=== PATIENT | male | born 1980 | race Caucasian/White ===

== ENCOUNTER 2020-03-16 16:47 | Emergency (ER) | payer SELFPAY ==
[2020-03-16] MEDS ORDERED: Ondansetron PF 4 MG/2 ML Vial ONE (18:04)
[2020-03-16] MEDS ORDERED: Ketorolac Tromethamine 30 MG/ML VIAL ONE (18:04)
[2020-03-16] MEDS ORDERED: diphenhydrAMINE 50 MG/ML VIAL ONE (18:05)
[2020-03-16 18:10] LABS: Hemoglobin 16.8 g/dL (14.0-18.0); Mean Corpuscular HGB CONC 34.6 g/dL (32.0-36.0); Mean Corpuscular Hemoglobin 32.2 pg (27.0-31.0); Platelet Count 331 thou/uL (130-400); RBC Distribution Width 12.3 % (11.5-14.5); Red Blood Cell (RBC) Count 5.24 mill/uL (4.70-6.10); White Blood Cell (WBC) Count 21.8 thou/uL (4.8-10.8)
[2020-03-16] MEDS ORDERED: Haloperidol Lactate 5 MG/ML VIAL SLOW IVP SCH (18:15)
[2020-03-16 18:28] LABS: MDiff Complete? YES
[2020-03-16] MEDS ORDERED: Haloperidol Lactate 5 MG/ML VIAL ONE (18:28)
[2020-03-16 18:29] LABS: ALT (SGPT) 33 U/L (8-55); AST (SGOT) 21 U/L (5-34); Alkaline Phosphatase 95 U/L (40-110); Anion Gap 26 mmol/L (10-20); BUN (Urea Nitrogen) 18 mg/dL (8.9-20.6); Band 7 % (5-11); Bilirubin, Total 0.9 mg/dL (0.2-1.2); Calc. Creatinine Clearance 0 mL/min (70-130); Calcium 10.4 mg/dL (7.8-10.44); Carbon Dioxide 14 mmol/L (22-29); Chloride 101 mmol/L (98-107); Globulin 3.3 g/dL (2.4-3.5); Glucose 169 mg/dL (70-105); Lipase 5 U/L (8-78); Lymphocytes 5 % (21-51); Monocytes 3 % (0-10); Neutrophil 84 % (42-75); Platelet Morphology Comment Appears Adequate; Potassium 3.8 mmol/L (3.5-5.1); Protein, Total 8.3 g/dL (6.0-8.3); RBC Morphology Normal; Reactive Lymphocytes 1 % (0-10); Sodium 137 mmol/L (136-145)
== END 2020-03-16 19:25 | disposition home or self-care (01) ==
LOC: ERS 16:47
DX: R11.2 Nausea with vomiting, unspecified (principal); R10.84 Generalized abdominal pain; F17.210 Nicotine dependence, cigarettes, uncomplicated
CPT/HCPCS: 36415; 80053; 83690; 85025; 96374; 96375; J1200; J1630; J1885; J2405

== ENCOUNTER 2020-03-24 09:18 | Emergency (ER) | payer SELFPAY ==
[2020-03-24] MEDS ORDERED: Ondansetron PF 4 MG/2 ML Vial ONE (09:52)
[2020-03-24 09:58] LABS: #Basophils 0.1 thou/uL (0.0-0.2); #Eosinphils 0.5 thou/uL (0.0-0.7); #Lymphocytes 4.1 thou/uL (1.20-3.40); #Monocytes 1.5 thou/uL (0.11-0.59); #Neutrophils 8.9 thou/uL (1.40-6.50); %Basophils 0.5 % (0.0-1.0); %Eosinophils 3.6 % (0.0-10.0); %Lymphocytes 27.3 % (21.0-51.0); %Monocytes 9.8 % (0.0-10.0); %Neutrophils 58.8 % (42.0-75.0); Mean Corpuscular HGB CONC 34.4 g/dL (32.0-36.0); Mean Corpuscular Hemoglobin 32.3 pg (27.0-31.0); Mean Corpuscular Volume 93.9 fL (78.0-98.0); Mean Platelet Volume 7.6 fL (7.4-10.4); Platelet Count 371 thou/uL (130-400); RBC Distribution Width 12.2 % (11.5-14.5); Red Blood Cell (RBC) Count 4.96 mill/uL (4.70-6.10); White Blood Cell (WBC) Count 15.1 thou/uL (4.8-10.8)
[2020-03-24] MEDS ORDERED: Morphine 4 MG/ML VIAL ONE (10:05)
[2020-03-24 10:23] LABS: ALT (SGPT) 26 U/L (8-55); AST (SGOT) 18 U/L (5-34); Albumin 4.3 g/dL (3.5-5.0); Alkaline Phosphatase 111 U/L (40-110); Anion Gap 20 mmol/L (10-20); BUN (Urea Nitrogen) 12 mg/dL (8.9-20.6); Bilirubin, Total 0.4 mg/dL (0.2-1.2); Calc. Creatinine Clearance 0 mL/min (70-130); Calcium 9.7 mg/dL (7.8-10.44); Carbon Dioxide 19 mmol/L (22-29); Chloride 102 mmol/L (98-107); Globulin 3.4 g/dL (2.4-3.5); Glucose 173 mg/dL (70-105); Lipase 18 U/L (8-78); Potassium 3.6 mmol/L (3.5-5.1); Protein, Total 7.7 g/dL (6.0-8.3); Sodium 137 mmol/L (136-145)
[2020-03-24] MEDS ORDERED: Fentanyl 100 MCG/2 ML VIAL ONE (10:49)
--- NOTE | 2020-03-24 11:19 | CT ---
EXAM: CT abdomen and pelvis with IV contrast PROVIDED CLINICAL HISTORY: Abdominal pain COMPARISON: 10/30/2019 FINDINGS: The visualized lung bases are free of significant opacity. Fatty infiltration of the liver is demonstrated. The solid abdominal organs demonstrate an otherwise unremarkable CT appearance. There is no bowel dilatation, inflammatory fat stranding, free fluid or free air apparent. There is n o evidence for appendicitis. No regional lymph node enlargement apparent. The regional major vascular structures appear unremarkable. The osseous structures demonstrate no concerning lytic or blastic lesions. IMPRESSION: No evidence for an acute process.
[2020-03-24] MEDS ORDERED: diphenhydrAMINE 50 MG CAP ONE (12:39)
[2020-03-24] MEDS ORDERED: Haloperidol Lactate 5 MG/ML VIAL ONE (13:14)
== END 2020-03-24 13:09 | disposition home or self-care (01) ==
LOC: ERS 09:18
DX: R10.84 Generalized abdominal pain (principal); F17.210 Nicotine dependence, cigarettes, uncomplicated
CPT/HCPCS: 74177; 80053; 83690; 84484; 85025; 93005; 96372; 96374; 96375; J1630; J2270; J2405; J3010

== ENCOUNTER 2020-05-08 16:06 | Observation (INO) | payer SELFPAY ==
[~2020-05-08 16:06] MED LIST: Iopamidol-370 76% 500 ML 1 ML ONE
[2020-05-08] MEDS ORDERED: Lorazepam 2 MG/ML VIAL ONE ×2 (16:30→22:01)
[2020-05-08] MEDS ORDERED: Haloperidol Lactate 5 MG/ML VIAL ONE (16:30)
[2020-05-08 16:43] LABS: Hemoglobin 15.6 g/dL (14.0-18.0); Mean Corpuscular HGB CONC 35.5 g/dL (32.0-36.0); Mean Corpuscular Hemoglobin 32.5 pg (27.0-31.0); Mean Corpuscular Volume 91.7 fL (78.0-98.0); Mean Platelet Volume 7.4 fL (7.4-10.4); Platelet Count 373 thou/uL (130-400); RBC Distribution Width 12.4 % (11.5-14.5); White Blood Cell (WBC) Count 22.1 thou/uL (4.8-10.8)
[2020-05-08 17:02] LABS: ALT (SGPT) 33 U/L (8-55); AST (SGOT) 22 U/L (5-34); Albumin 4.8 g/dL (3.5-5.0); Alkaline Phosphatase 79 U/L (40-110); Anion Gap 27 mmol/L (10-20); BUN (Urea Nitrogen) 23 mg/dL (8.9-20.6); Bilirubin, Total 1.4 mg/dL (0.2-1.2); Calc. Creatinine Clearance 0 mL/min (70-130); Calcium 9.5 mg/dL (7.8-10.44); Carbon Dioxide 19 mmol/L (22-29); Chloride 91 mmol/L (98-107); Globulin 3.2 g/dL (2.4-3.5); Glucose 222 mg/dL (70-105); Lipase 8 U/L (8-78); Lymphocytes 26 % (21-51); MDiff Complete? YES; Monocytes 5 % (0-10); Neutrophil 64 % (42-75); Platelet Morphology Comment Appears Adequate; RBC Morphology Normal; Reactive Lymphocytes 5 % (0-10); Sodium 134 mmol/L (136-145)
--- NOTE | 2020-05-08 17:04 | CT ---
CT of the abdomen and pelvis: 05/08/2020 COMPARISON: 03/24/2020 HISTORY: Diffuse abdominal pain with vomiting TECHNIQUE: Axial CT imaging at 5 mm intervals from the lung bases through the pubic symphysis with in travenous contrast. Coronal and sagittal reformatted imaging obtained. FINDINGS: Visualized lung bases are unremarkable. No free intraperitoneal air or fluid is seen. There is a small fat-containing umbilical hernia. There are small bilateral fat-containing inguinal hernias, right larger than left. The hepatic parenchyma is diffusely hypodense, evidence of steatosis. The gallbladder, spleen, pancre as, adrenal glands, and kidneys are unremarkable. Limited assessment of the bowel without oral contrast media demonstrates no evidence for inflammatory change or obstruction. The appendix appears unremarkable. The vascular structures of the abdomen/pelvis appear patent. There is minimal calcified plaque within the infrarenal abdominal aorta. No abdominal or pelvic lymphadenopathy is seen. Review of the osseous structures demonstrates no acute findings. IMPRESSION: Incidental findings as detailed above. No acute findings are noted.
[2020-05-08 17:06] LABS: Potassium 2.7 mmol/L (3.5-5.1)
[2020-05-08] MEDS ORDERED: Magnesium 2 GM/50 ML BAG (IN WATER) ONE ×2 (17:50→22:01)
[2020-05-08] MEDS ORDERED: diphenhydrAMINE 50 MG/ML VIAL ONE (17:50)
[2020-05-08] MEDS ORDERED: Promethazine HCl 25 MG/ML VIAL ONE ×2 (17:50→22:01)
[2020-05-08] MEDS ORDERED: NS 0.9% w/ 40 MEQ KCL 1,000 ML IV SCH (19:00)
[2020-05-08] MEDS ORDERED: Acetaminophen 325 MG TAB PO PRN (19:09)
[2020-05-08] MEDS ORDERED: Ondansetron ODT 4 MG TAB PO PRN (19:09)
[2020-05-08] MEDS ORDERED: Acetaminophen 650 MG Suppository PR PRN (19:09)
[2020-05-08] MEDS ORDERED: Ondansetron PF 4 MG/2 ML Vial IVP PRN (19:09)
[2020-05-08] MEDS ORDERED: Lorazepam 2 MG/ML VIAL SLOW IVP PRN (19:11)
[2020-05-08] MEDS ORDERED: Magnesium 2 GM/50 ML 2 GM in Premix Bag 1 BAG IVPB SCH (19:15)
--- NOTE | 2020-05-08 19:16 | PDOC.HHP ---
Hospitalist SHIVA Nausea Vomitting History of Present Illness: Mr. Prather is a 39-year-old male past medical history of cannabis hyperemesis syndrome, tobacco use who presents to the emergency room for nausea vomiting. Patient reports that 3 days ago he had an onset of nausea vomiting and has been profusely vomiting over the past 3 days. Is unable to tolerate any p.o. intake. Reports episodes feel similar to prior cannabis hyperemesis episodes. Denies chest pain, shortness of breath, abdominal pain. Emergency room initial vital signs 127/71, 127, 20, 98.2, 97% on room air. EKG showed sinus tachycardia with a QT interval of 552. H/H 15.6/44.0, WBC 22.1, platelets 373. BUN/CR 23/1.62, sodium 134, potassium 2.7. Troponin [address] abdomen pelvis showed no acute findings. Patient received Phenergan, Haldol, Ativan, IV fluids with potassium, magnesium in the emergency room. Allergies/Adverse Reactions: Allergy/AdvReac Type Severity Reaction Status Date / Time No Known Drug Allergies Allergy Unverified 03/16/20 18:15 Comments: No home medications No known drug allergies Past History: PMHx: Cannabis hyperemesis syndrome PSHx: No past surgical history FHx: Family history of lung cancer in his mother Social: Tobacco use, marijuana use no alcohol use. Hospitalist SHIVA CORRIGAN Constitutional: reports: weakness, malaise. denies: fever, chills, sweats, other Eyes: denies: pain, vision change, conjunctivae inflammation, eyelid inflammation, redness, other ENT: denies: ear pain, ear discharge, nose pain, nose discharge, nose congestion, mouth pain, mouth swelling, throat pain, throat swelling, other Respiratory: denies: cough, dry, shortness of breath, hemoptysis, SOB with excertion, pleuritic pain, sputum, wheezing, other Cardiovascular: denies: chest pain, palpitations, orthopnea, paroxysmal noc. dyspnea, edema, light headedness, other Gastrointestinal: reports: nausea, vomiting, abdominal pain. denies: diarrhea, constipation, melena, hematochezia, other Genitourinary: denies: dysuria, frequency, incontinence, hematuria, retention, other Musculoskeletal: denies: neck pain, shoulder pain, arm pain, back pain, hand pain, leg pain, foot pain, other Skin: denies: rash, lesions, paolo, bruising, other Neurological: denies: weakness, numbness, incoordination, change in speech, confusion, seizures, other Hospitalist Exam General Appearance: NAD, awake alert, ill appearing Eye: PERRL, anicteric sclera ENT: normocephalic atraumatic, no oropharyngeal lesions, moist mucosa Neck: supple, symmetric, no JVD, no thyromegaly, no lymphadenopathy, no carotid bruit Heart: RRR, no murmur, no gallops, no rubs, normal peripheral pulses Respiratory: CTAB, no wheezes, no rales, no ronchi, normal chest expansion, no tachypnea, normal percussion Gastrointestinal: soft, non-tender, non-distended, normal bowel sounds, no palpable masses, no hepatomegaly, no splenomegaly, no bruit Extremities: no cyanosis, no clubbing, no edema Skin: normal turgor, no lesions, no rashes Neurological: cranial nerve grossly intact, normal sensation to touch, no weakness, no focal deficits, no new deficit Musculoskeletal: normal tone, normal strength, no muscle wasting Psychiatric: normal affect, normal behavior, A&O x 3 Hospitalist Results Result Diagrams: 05/08/20 16:33 05/08/20 16:33 Lab results: Laboratory Last Values WBC 22.1 thou/uL (4.8-10.8) H 05/08/20 16: RBC 4.80 mill/uL (4.70-6.10) 05/08/20 16:33 Hgb 15.6 g/dL (14.0-18.0) 05/08/20 16:33 Hct 44.0 % (42.0-52.0) 05/08/20 16: MCV 91.7 fL (78.0-98.0) 05/08/20 16: MCH 32.5 pg (27.0-31.0) H 05/08/20 16: MCHC 35.5 g/dL (32.0-36.0) 05/08/20 16: RDW 12.4 % (11.5-14.5) 05/08/20 16:33 Plt Count 373 thou/uL (130-400) 05/08/20 16:33 MPV 7.4 fL (7.4-10.4) 05/08/20 16:33 Neutrophils % (Manual) 64 % (42-75) 05/08/20 16:33 Lymphocytes % (Manual) 26 % (21-51) 05/08/20 16:33 Reactive Lymphs % 5 % (0-10) 05/08/20 16:33 Monocytes % (Manual) 5 % (0-10) 05/08/20 16:33 Lymphocytes # Not Reportable 05/08/20 16:33 Plt Morphology Comment Appears Adequate 05/08/20 16:33 RBC Morph Comment Normal 05/08/20 16:33 Sodium 134 mmol/L (136-145) L 05/08/20 16:33 Potassium 2.7 mmol/L (3.5-5.1) L* 05/08/20 16:33 Chloride 91 mmol/L (98-107) L 05/08/20 16:33 Carbon Dioxide 19 mmol/L (22-29) L 05/08/20 16:33 Anion Gap 27 mmol/L (10-20) H 05/08/20 16:33 BUN 23 mg/dL (8.9-20.6) H 05/08/20 16:33 Creatinine 1.62 mg/dL (0.7-1.3) H 05/08/20 16:33 Estimated GFR (MDRD) 48 05/08/20 16:33 Glucose 222 mg/dL (70-105) H 05/08/20 16:33 Calcium 9.5 mg/dL (7.8-10.44) 05/08/20 16:33 Total Bilirubin 1.4 mg/dL (0.2-1.2) H 05/08/20 16:33 AST 22 U/L (5-34) 05/08/20 16:33 ALT 33 U/L (8-55) 05/08/20 16:33 Alkaline Phosphatase 79 U/L (40-110) 05/08/20 16:33 Troponin I 0.020 ng/mL (< 0.028) 05/08/20 16:33 Serum Total Protein 8.0 g/dL (6.0-8.3) 05/08/20 16:33 Albumin 4.8 g/dL (3.5-5.0) 05/08/20 16:33 Globulin 3.2 g/dL (2.4-3.5) 05/08/20 16:33 Albumin/Globulin Ratio 1.5 g/dL (1.2-2.2) 05/08/20 16:33 Lipase 8 U/L (8-78) 05/08/20 16:33 Hospitalist H&P A/P Plan: Cannabis hyperemesis syndrome with intractable nausea and vomiting Patient with cannabis hyperemesis syndrome intractable nausea and vomiting. Prior history of the same. CT abdomen pelvis no acute findings. Lipase 8, troponin 0 0.020. LFTs within normal limits. Patient reports Phenergan has worked the best for him in the past. Encourage patient to quit marijuana use. Will make antiemetics available. Plan Repeat electrolytes as below Phenergan Ativan as needed Clear liquid diet, advance as tolerated Hypokalemia Potassium 2.7 presentation. QT prolonged at 552. Patient received 40 mEq in emergency room. We will continue to replete and trend. Patient also received 2 g of magnesium in the emergency room. Plan IV repletion Continuous cardiac monitoring Repeat BMP Hypomagnesemia Patient with prolonged QT. Likely low magnesium in addition to potassium. Will replete and continue to monitor. Continuous cardiac monitoring. Plan Magnesium 2 g Trend magnesium Continuous cardiac monitoring Acute kidney injury BUN/CR 23/1.62. Likely secondary to decreased p.o. intake and GI losses. Will give IV fluids and continue to monitor. Plan IV fluids Trend kidney function Avoid nephrotoxic agents, renal dosing as appropriate Leukocytosis WBC 22.1. Suspect likely reactive leukocytosis. No evidence of infectious process at this time. Patient is afebrile. Will check UA. Continue to trend and monitor. DVT prophylaxisSCDs Full code Case discussed with attending physician Dr. Barreto.
[2020-05-08 20:47] LABS: Bacteria/HPF None Seen HPF (None Seen); Bilirubin Negative (Negative); Blood, Urine Negative (Negative); Clarity Clear (Clear); Glucose, Urine (Dipstick) Normal (Negative); Ketone, Urine 40 mg/dL (Negative); Leukocyte Negative Leu/uL (Negative); Nitrite Negative (Negative); Protein, Urine (Dipstick) 30 mg/dL (Neg-Trace); RBC/HPF 0-3 HPF (0-3); Squamous Epithelial 0-3 HPF (0-3); Urobilinogen 3 mg/dL (Less than 2); WBC/HPF 0-3 HPF (0-3)
[2020-05-08 20:48] LABS: Specific Gravity, Urine Greater than 1.060 (1.002-1.036); pH, Urine Greater than 1.1 (5.0-9.0)
[2020-05-08 21:46] LABS: Anion Gap 18 mmol/L (10-20); BUN (Urea Nitrogen) 18 mg/dL (8.9-20.6); Calc. Creatinine Clearance 0 mL/min (70-130); Calcium 8.5 mg/dL (7.8-10.44); Carbon Dioxide 21 mmol/L (22-29); Chloride 100 mmol/L (98-107); Glucose 140 mg/dL (70-105); Potassium 3.4 mmol/L (3.5-5.1); Sodium 136 mmol/L (136-145)
[2020-05-08] MEDS: Promethazine HCl 12.5 MG in Sodium Chloride 0.9% 50 ML IVPB PRN (22:13)
[2020-05-08 22:16] VITALS: BMI 40.7
[2020-05-09 00:51] VITALS: TEMP 98.7
[2020-05-09] MEDS ORDERED: Promethazine HCl 25 MG/ML VIAL ONE ×2 (04:14→09:52)
[2020-05-09] MEDS: Promethazine HCl 12.5 MG in Sodium Chloride 0.9% 50 ML IVPB PRN ×2 (04:17→09:52)
[2020-05-09 05:08] LABS: SARS-CoV-2 PCR by NAA Not Detected (NotDetected)
[2020-05-09 05:54] LABS: Anion Gap 15 mmol/L (10-20); BUN (Urea Nitrogen) 13 mg/dL (8.9-20.6); Calc. Creatinine Clearance 204 mL/min (70-130); Calcium 8.3 mg/dL (7.8-10.44); Carbon Dioxide 16 mmol/L (22-29); Chloride 107 mmol/L (98-107); Glucose 112 mg/dL (70-105); Potassium 3.8 mmol/L (3.5-5.1); Sodium 134 mmol/L (136-145)
[2020-05-09 07:50] LABS: #Basophils 0.1 thou/uL (0.0-0.2); #Eosinphils 0.1 thou/uL (0.0-0.7); #Monocytes 1.5 thou/uL (0.11-0.59); #Neutrophils 11.6 thou/uL (1.40-6.50); %Basophils 0.4 % (0.0-1.0); %Eosinophils 0.5 % (0.0-10.0); %Lymphocytes 18.4 % (21.0-51.0); %Monocytes 9.3 % (0.0-10.0); %Neutrophils 71.3 % (42.0-75.0); Hemoglobin 13.6 g/dL (14.0-18.0); Mean Corpuscular HGB CONC 34.7 g/dL (32.0-36.0); Mean Corpuscular Volume 95.2 fL (78.0-98.0); Mean Platelet Volume 7.3 fL (7.4-10.4); Platelet Count 192 thou/uL (130-400); RBC Distribution Width 12.4 % (11.5-14.5); Red Blood Cell (RBC) Count 4.12 mill/uL (4.70-6.10); White Blood Cell (WBC) Count 16.3 thou/uL (4.8-10.8)
[2020-05-09] MEDS ORDERED: Ondansetron PF 4 MG/2 ML Vial ONE (09:05)
[2020-05-09] MEDS ORDERED: Lidocaine 2% Viscous Solution 20 ML, Aluminum & Magnesium Hydroxide 30 ML, Donnatal Eli... SSW SCH (09:45)
--- NOTE | 2020-05-09 10:41 | PDOC.HOSPP ---
- Subjective Encounter Date: 05/09/20 Encounter Time: 08:35 Subjective: Patient states he is feeling significantly better and has not had any further vomiting overnight. He has had 2 cans of Sprite which he kept down but has not had anything to eat yet. He says he is afraid to eat as it could cause him to vomit again, though he does deny any nausea at this moment. Denies any abdominal discomfort. Feels well him self and has no complaints at this time. - Objective Vital Signs & Weight: Vital Signs (12 hours) Temp Pulse Ox 05/09/20 00:50 98.7 F 05/08/20 23:12 94 L 05/08/20 23:00 98.1 F Weight Weight 260 lb Most Recent Monitor Data Heart Rate from ECG 91 NIBP 103/62 NIBP BP-Mean 75 Respiration from ECG 20 SpO2 95 I&O: 05/08/20 05/09/20 05/10/20 06:59 06:59 06:59 Intake Total 1300 Output Total 200 Balance 1100 Result Diagrams: 05/09/20 07:35 05/09/20 05:32 Radiology Reviewed by me: Yes EKG Reviewed by me: Yes Hospitalist ROS - Review of Systems All other systems reviewed; all pertinent +/- noted in HPI/Subj (apart from what is noted above.) - Medication Medications: Active Medications Generic Name Dose Route Start Last Admin Trade Name Freq PRN Reason Stop Dose Admin Promethazine HCl 12.5 mg/ 50.5 mls @ 202 mls/hr 05/08/20 19:11 05/09/20 09:52 Sodium Chloride IVPB 50.5 mls Q6H PRN Administration Nausea/Vomiting Lorazepam 1 mg 05/08/20 19:11 05/08/20 22:13 Lorazepam 2 Mg/Ml Vial SLOW IVP 1 mg Q6H PRN Administration Nausea Ondansetron HCl 4 mg 05/08/20 19:09 05/09/20 09:10 Ondansetron Pf 4 Mg/2 Ml Vial IVP 4 mg Q6H PRN Administration Nausea/Vomiting Hospitalist Exam Vitals: Vital Signs (12 hours) Temp Pulse Ox 05/09/20 00:50 98.7 F 05/08/20 23:12 94 L 05/08/20 23:00 98.1 F Weight Weight 260 lb Most Recent Monitor Data Heart Rate from ECG 91 NIBP 103/62 NIBP BP-Mean 75 Respiration from ECG 20 SpO2 95 General Appearance: NAD, awake alert Eye: PERRL, anicteric sclera ENT: normocephalic atraumatic, no oropharyngeal lesions, moist mucosa Neck: supple, no lymphadenopathy Heart: RRR, no murmur, no gallops, no rubs, normal peripheral pulses Respiratory: CTAB, no wheezes, no rales, no ronchi, normal chest expansion Gastrointestinal: soft, non-tender, non-distended, normal bowel sounds, no guarding, no rigidity Extremities: no edema Skin: normal turgor, no lesions, no rashes Neurological: cranial nerve grossly intact, normal sensation to touch, no weakness Musculoskeletal: normal tone, normal strength, no muscle wasting Psychiatric: normal affect, normal behavior, A&O x 3 Hosp A/P (1) Electrolyte depletion Code(s): E87.8 - OTH DISORDERS OF ELECTROLYTE AND FLUID BALANCE, NEC Status: Acute Plan: QT prolongation on initial EKG Both Mg+ and K+ have been replaced Repeat lytes, further replacement as necessary Repeat EKG (2) Intractable nausea and vomiting Code(s): R11.2 - NAUSEA WITH VOMITING, UNSPECIFIED Status: Acute Plan: Has settled, encourage PO intake Advance as tolerated Disposition/plan for d/c pending tolerance to PO intake (3) Cannabinoid hyperemesis syndrome Code(s): R11.2 - NAUSEA WITH VOMITING, UNSPECIFIED; F12.90 - CANNABIS USE, UNSPECIFIED, UNCOMPLICATED Status: Suspected Plan: UDS ordered Patient apparently last smoked 3 weeks ago, cannabis as a cause is unlikely due to timing. (4) Leukocytosis Code(s): D72.829 - ELEVATED WHITE BLOOD CELL COUNT, UNSPECIFIED Status: Acute Plan: Likely reactive, will obtain baseline CXR UA without evidence of UTI No s/s of infection at present (5) Elevated bilirubin Code(s): R17 - UNSPECIFIED JAUNDICE Status: Acute Plan: Repeat LFTs including direct bili (6) Hepatic steatosis Code(s): K76.0 - FATTY (CHANGE OF) LIVER, NOT ELSEWHERE CLASSIFIED Status: Chronic (7) GERD (gastroesophageal reflux disease) Code(s): K21.9 - GASTRO-ESOPHAGEAL REFLUX DISEASE WITHOUT ESOPHAGITIS Status: Chronic Plan: Continue PPI - Plan DVT proph w/SCDs Patient seen by Dr. Barreto, has advised to hold off on discharge as patient now started vomiting after drinking coffee.
[2020-05-09 11:02] LABS: Amphetamine Not Detected (NotDetected); Barbiturates Screen Not Detected (NotDetected); Benzodiazepine Screen Detected (NotDetected); Cocaine Metabolite Screen Not Detected (NotDetected); Medtox Control Line Valid? VALID (VALID); Medtox Reader # READER 4; Methadone Not Detected (NotDetected); Methamphetamine Not Detected (NotDetected); Opiate Screen Not Detected (NotDetected); Oxycodone Screen Not Detected (NotDetected); Phencyclidine (PCP) Not Detected (NotDetected); THC/Cannabinoid Screen Detected (NotDetected); Tricyclic Screen Not Detected (NotDetected)
[2020-05-09] MEDS ORDERED: Lidocaine Viscous Sol 2% 15 ml UD Cup ONE (11:10)
[2020-05-09] MEDS ORDERED: Mag-Al 1200 mg/1200 mg/30 ML UDCUP ONE (11:10)
[2020-05-09 11:38] LABS: ALT (SGPT) 25 U/L (8-55); AST (SGOT) 27 U/L (5-34); Albumin 3.9 g/dL (3.5-5.0); Alkaline Phosphatase 70 U/L (40-110); Bilirubin, Direct 0.3 mg/dL (0.1-0.3); Bilirubin, Total 0.9 mg/dL (0.2-1.2); Protein, Total 7.1 g/dL (6.0-8.3)
[2020-05-09 11:48] LABS: Lactic Acid 1.6 mmol/L (0.5-2.2)
[2020-05-09] MEDS ORDERED: Capsaicin 0.025% Cream 60 gm Tube TOP SCH (14:00)
[2020-05-09] MEDS ORDERED: FLU VACC QS2020-21(6MOS UP)/PF 60 MCG/0.5 ML SYRINGE IM ONE (21:00)
== END 2020-05-09 13:12 | disposition left against medical advice (07) ==
LOC: ERS 16:06 → ERHOLD 18:55
PROVIDERS: ADMIT Internal Medicine; ATTEND Internal Medicine
DX: R11.2 Nausea with vomiting, unspecified (principal); E87.8 Other disorders of electrolyte and fluid balance, not elsewhere classified; R94.31 Abnormal electrocardiogram [ECG] [EKG]; D72.829 Elevated white blood cell count, unspecified; K76.0 Fatty (change of) liver, not elsewhere classified; K21.9 Gastro-esophageal reflux disease without esophagitis; E87.6 Hypokalemia; E83.42 Hypomagnesemia; N17.9 Acute kidney failure, unspecified; Z87.891 Personal history of nicotine dependence; Z88.2 Allergy status to sulfonamides; Z20.822 Contact with and (suspected) exposure to COVID-19
CPT/HCPCS: 36415; 74177; 80048; 80053; 80076; 80306; 81003; 81015; 83605; 83690; 83735; 84484; 85025; 87635; 93005; 96365; 96366; 96367; 96368; 96375; 96376; G0378; J1200; J1630; J2060; J2405; J2550; J3475; J3480; Q9967; U0003; U0005